=== PATIENT | female | born 1985 | race Caucasian/White ===

== ENCOUNTER 2016-07-11 20:00 | Emergency (ER) | payer BC, MEDICAID ==
[2016-07-11 21:17] VITALS: BP 119/67
--- NOTE | 2016-07-11 21:38 | UC ---
Abdominal Pain Female HPI - HPI Summary HPI Summary: The patient comes in today for: 1. Abdominal pain (epigastric): Onset: One and off for about a month. But, starting at about 1 PM, today, it has gotten worse. Palliative/provocative: Eating makes it worse. "Curling up in a ball helps." TUMS did not help other than "briefly." Quality: Sharp and fullness. Region: Epigastric area. Severity: 310 Time: Constant. Associated symptoms: Fevers: None. Vomiting: "I've had a lot of morning sickness and nausea." She states that she can't tell if her nausea is worse. Hematemsis: She had one episode of this 4 days ago. None since. She had this "small amount" (no clots--just streaks) 4 days ago. Melena: None. Previous disease: She has had an ulcer before--about three years ago. Treatment: Sulcrafate. She was taking "a lot of NSAIDS" for a torn muscle. She states she has not taken any NSAIDs for months. She is about 11 weeks by her report. * - History of Current Complaint Chief Complaint: UCAbdominalPain Stated Complaint: ABDOMINAL PAIN Time Seen by Provider: 07/11/16 21:26 Hx Obtained From: Patient Hx Last Menstrual Period: 04/20/12 ?: Yes Allergies/Adverse Reactions: Allergies Allergy/AdvReac Type Severity Reaction Status Date / Time No Known Allergies Allergy Verified 05/12/12 13:03 Home Medications: Home Medications Doxylamine/Pyridoxine(NF) [Diclegis (NF)] 1 tab PO 07/11/16 [History] Vitamin [Calna] 1 tab PO 07/11/16 [History] PMH/Surg Hx/FS Hx/Imm Hx Previously Healthy: Yes Endocrine History Of: Denies: Diabetes, Thyroid Disease, Hyperthyroidism, Hypothyroidism, Dyslipidemia Cardiovascular History Of: Denies: Cardiac Disorders, Hypertension, Pacemaker/ICD, Myocardial Infarction , Congestive Heart Failure, Atrial Fibrillation, Deep Vein Thrombosis, Bleeding Disorders Respiratory History Of: Reports: Asthma - exercise induced. Denies: COPD, Bronchitis, Pneumonia, Pulmonary Embolism GI/ History Of: Reports: Ulcer - 3 years ago. Rx: Sulcrafate. Denies: Gastroesophageal Reflux, Gastrointestinal Bleed, Gall Bladder Disease , Kidney Stones, Diverticulitis, Renal Disease, Urosepsis Neurological History Of: Denies: TIA, CVA, Dementia, Seizures, Migraine Psychological History Of: Reports: Depression - Was on Lexapro but stopped it about 2 months ago. Denies: Anxiety, Bipolar Disorder, Schizophrenia, Post Traumatic Stress Disorder Cancer History Of: Denies: Lung Cancer, Colorectal Cancer, Breast Cancer, Prostate Cancer, Cervical Cancer Other History Of: Negative For: HIV, Hepatitis B, Hepatitis C, Anticoagulant Therapy - Surgical History Surgical History: Yes Surgery Procedure, Year, and Place: Right shoulder repair 5 years ago tear repair. - Family History Known Family History: Positive: Hypertension, Diabetes Negative: Cardiac Disease - Social History Occupation: Unemployed Alcohol Use: None Substance Use Type: None Smoking Status (MU): Never Smoked Tobacco Review of Systems Constitutional: Negative Skin: Negative Eyes: Negative ENT: Sore Throat Respiratory: Negative Cardiovascular: Negative Gastrointestinal: Abdominal Pain Genitourinary: Negative All Other Systems Reviewed And Are Negative: Yes Physical Exam Triage Information Reviewed: Yes Appearance: Well-Appearing, No Pain Distress, Well-Nourished Vital Signs: Initial Vital Signs Temp 98.4 F 07/11/16 21:13 Pulse 64 07/11/16 21:13 Resp 18 07/11/16 21:13 BP 119/67 07/11/16 21:13 Pulse Ox 100 07/11/16 21:13 Vital Signs Reviewed: Yes Eyes: Positive: Conjunctiva Clear. Negative: Discharge ENT: Positive: Hearing grossly normal. Negative: Pharyngeal erythema, Nasal congestion, Nasal drainage, TM bulging, TM dull, TM red, Tonsillar swelling, Tonsillar exudate Dental: Negative: Gross Decay/Caries @, Dental Fracture @ Neck: Positive: Supple, Nontender, No Lymphadenopathy. Negative: Nuchal Rigidity Respiratory: Positive: Chest non-tender, Lungs clear, No respiratory distress, No accessory muscle use. Negative: Crackles, Wheezing Cardiovascular: Positive: RRR, No Murmur Abdomen Description: Positive: No Organomegaly, Soft. Negative: Nontender - She has tenderness to palpation of the epigastric area, but no rebound or percussion tenderness., Guarding, Hepatomegaly Musculoskeletal: Positive: Strength Intact, ROM Intact Neurological: Positive: Alert, Muscle Tone Normal Psychological: Positive: Age Appropriate Behavior, Consolable Skin: Negative: rashes, breakdown Abd Pain Female Course/Dx - Differential Dx/Diagnosis Differential Diagnosis: Gall Bladder Disease, Pancreatitis, Peptic Ulcer Disease Provider Diagnoses: ABdominal pain, epigastric. Discharge - Discharge Plan Condition: Stable Disposition: AGAINST MEDICAL ADVICE Additional Instructions: Please go directly to the [facility] [place] [facility].
== END 2016-07-11 22:12 | disposition left against medical advice (07) ==
LOC: UCEAST 20:00
DX: O21.0 Mild hyperemesis gravidarum (principal); Z3A.11 11 weeks gestation of pregnancy; R10.13 Epigastric pain
CPT/HCPCS: 99212; G0463

== ENCOUNTER 2016-07-11 22:29 | Emergency (ER) | payer BC, MEDICAID ==
[2016-07-11 22:49] VITALS: BP 104/62
[2016-07-11] MEDS ORDERED: Famotidine TAB* 20 MG PO ONE (23:15)
[2016-07-12 00:02] LABS: Hematocrit 35 % (35-47); Mean Corpuscular HGB Conc 34 g/dl (31-36); Mean Corpuscular Hemoglobin 31 pg (27-31); Mean Corpuscular Volume 89 fL (80-97); Mean Platelet Volume 9 um3 (7.4-10.4); Red Blood Count 3.94 10^6/ul (4.0-5.4); Red Cell Distribution Width 13 % (10.5-15); White Blood Count 7.9 10^3/ul (3.5-10.8)
[2016-07-12 00:15] LABS: Albumin 3.8 g/dL (3.2-5.2); BUN/Creatinine Ratio 19.7 (8-20); Calcium 9.2 mg/dL (8.6-10.3); EGFR African American 149.1 (>60); Globulin 2.6 g/dL (2-4); Potassium 3.5 mmol/L (3.5-5.0); Total Bilirubin 0.3 mg/dL (0.2-1.0); Total Protein 6.4 g/dL (6.4-8.9)
[2016-07-12 00:53] LABS: Urine Bilirubin Negative (Negative); Urine Glucose Negative (Negative); Urine Nitrite Negative (Negative)
--- NOTE | 2016-07-12 01:44 | ED ---
Juan Austin Karl, scribed for Prisca Mauriciouel on 07/11/16 at 2314 . Abdominal Pain/Female - HPI Summary HPI Summary: 30 y/o F presents w/ c/o acute abd pain that is currently at a 3/10 but has been around for 1 month. Pt stated that she took Tums at 17:30 and they have not helped much. Pt is 11 weeks and stated she was diagnosed with an ulcer 3 years ago. Pt denied CP and SOB. - History of Current Complaint Chief Complaint: EDAbdPain Stated Complaint: TRANSFER- 11 WKS PREG-ABD PAIN Time Seen by Provider: 07/11/16 22:38 Hx Obtained From: Patient Hx Last Menstrual Period: 04/20/12 ?: Yes Onset/Duration: Gradual Onset Timing: Constant Severity Initially: Mild Severity Currently: Mild Pain Intensity: 3 - abd pain Pain Scale Used: 0-10 Numeric Location: Epigastric Radiates: No Allergies/Adverse Reactions: Allergies Allergy/AdvReac Type Severity Reaction Status Date / Time No Known Allergies Allergy Verified 05/12/12 13:03 PMH/Surg Hx/FS Hx/Imm Hx Previously Healthy: Yes Endocrine/Hematology History: Denies: Hx Anticoagulant Therapy, Hx Diabetes, Hx Thyroid Disease Cardiovascular History: Denies: Hx Congestive Heart Failure, Hx Deep Vein Thrombosis, Hx Hypertension , Hx Myocardial Infarction, Hx Pacemaker/ICD Respiratory History: Reports: Hx Asthma - exercise induced. Denies: Hx Chronic Obstructive Pulmonary Disease (COPD), Hx Lung Cancer, Hx Pneumonia, Hx Pulmonary Embolism GI History: Reports: Hx Ulcer - 3 years ago. Rx: Sulcrafate. Denies: Hx Gall Bladder Disease, Hx Gastrointestinal Bleed, Hx Urosepsis History: Denies: Hx Kidney Stones, Hx Renal Disease Neurological History: Denies: Hx Dementia, Hx Migraine, Hx Seizures, Hx Transient Ischemic Attacks (TIA) Psychiatric History: Reports: Hx Depression - Was on Lexapro but stopped it about 2 months ago. Denies: Hx Anxiety, Hx Schizophrenia, Hx Bipolar Disorder - Surgical History Surgery Procedure, Year, and Place: Right shoulder repair 5 years ago tear repair. Infectious Disease History: No Infectious Disease History: Denies: Hx Hepatitis, Hx Human Immunodeficiency Virus (HIV), Traveled Outside the [place] in Last 30 Days - Family History Known Family History: Positive: Hypertension, Diabetes Negative: Cardiac Disease - Social History Alcohol Use: None Substance Use Type: Reports: None Smoking Status (MU): Never Smoked Tobacco Review of Systems Constitutional: Negative Eyes: Negative ENT: Negative Negative: Chest Pain Negative: Shortness Of Breath Positive: Abdominal Pain Genitourinary: Negative Musculoskeletal: Negative Skin: Negative Neurological: Negative Psychological: Normal All Other Systems Reviewed And Are Negative: Yes Physical Exam Triage Information Reviewed: Yes Vital Signs On Initial Exam: Initial Vitals Temp Pulse Resp BP Pulse Ox 98.6 F 63 14 104/62 100 07/11/16 22:42 07/11/16 22:42 07/11/16 22:42 07/11/16 22:42 07/11/16 22:42 Vital Signs Reviewed: Yes Appearance: Positive: Well-Appearing, No Pain Distress Skin: Positive: Warm, Skin Color Reflects Adequate Perfusion, Dry Head/Face: Positive: Normal Head/Face Inspection Eyes: Positive: EOMI, ANITA ENT: Positive: Normal ENT inspection Neck: Positive: Supple, Nontender Respiratory/Lung Sounds: Positive: Clear to Auscultation, Breath Sounds Present Cardiovascular: Positive: RRR, Pulses are Symmetrical in both Upper and Lower Extremities Abdomen Description: Positive: Other: - Mild tenderness in epigastric area Bowel Sounds: Positive: Present Musculoskeletal: Positive: Normal, Strength/ROM Intact Neurological: Positive: Normal, Sensory/Motor Intact, Alert, Oriented to Person Place, Time Psychiatric: Positive: Affect/Mood Appropriate Diagnostics - Vital Signs Vital Signs Temp Pulse Resp BP Pulse Ox 07/11/16 22:42 98.6 F 63 14 104/62 100 - Laboratory Lab Results: Lab Results 07/11/16 07/11/16 07/11/16 Range/Units 23:52 23:52 23:52 WBC 7.9 (3.5-10.8) 10^3/ul RBC 3.94 L (4.0-5.4) 10^6/ul Hgb 12.0 (12.0-16.0) g/dl Hct 35 (35-47) % MCV 89 (80-97) fL MCH 31 (27-31) pg MCHC 34 (31-36) g/dl RDW 13 (10.5-15) % Plt Count 157 (150-450) 10^3/ul MPV 9 (7.4-10.4) um3 Neut % (Auto) 66.4 (38-83) % Lymph % (Auto) 23.7 L (25-47) % Person % (Auto) 7.8 (1-9) % Eos % (Auto) 1.3 (0-6) % Baso % (Auto) 0.8 (0-2) % Absolute Neuts (auto) 5.3 (1.5-7.7) 10^3/ul Absolute Lymphs (auto) 1.9 (1.0-4.8) 10^3/ul Absolute Monos (auto) 0.6 (0-0.8) 10^3/ul Absolute Eos (auto) 0.1 (0-0.6) 10^3/ul Absolute Basos (auto) 0.1 (0-0.2) 10^3/ul Absolute Nucleated RBC 0 10^3/ul Nucleated RBC % 0 Sodium 133 (133-145) mmol/L Potassium 3.5 (3.5-5.0) mmol/L Chloride 103 (101-111) mmol/L Carbon Dioxide 21 L (22-32) mmol/L Anion Gap 9 (2-11) mmol/L BUN 12 (6-24) mg/dL Creatinine 0.61 (0.51-0.95) mg/dL Est GFR ( Amer) 149.1 (>60) Est GFR (Non-Af Amer) 116.0 (>60) BUN/Creatinine Ratio 19.7 (8-20) Glucose 79 (70-100) mg/dL Calcium 9.2 (8.6-10.3) mg/dL Total Bilirubin 0.30 (0.2-1.0) mg/dL AST 17 (13-39) U/L ALT 8 (7-52) U/L Alkaline Phosphatase 30 L (34-104) U/L Total Protein 6.4 (6.4-8.9) g/dL Albumin 3.8 (3.2-5.2) g/dL Globulin 2.6 (2-4) g/dL Albumin/Globulin Ratio 1.5 (1-3) Lipase 60 (11.0-82.0) U/L Beta HCG, Quant 338080.00 mIU/mL Urine Color Urine Appearance Urine pH (5-9) Ur Specific Mcintire (1.010-1.030) Urine Protein (Negative) Urine Ketones (Negative) Urine Blood (Negative) Urine Nitrate (Negative) Urine Bilirubin (Negative) Urine Urobilinogen (Negative) Ur Leukocyte Esterase (Negative) Urine Glucose (Negative) Blood Type O Positive Antibody Screen Negative 07/12/16 Range/Units 00:41 WBC (3.5-10.8) 10^3/ul RBC (4.0-5.4) 10^6/ul Hgb (12.0-16.0) g/dl Hct (35-47) % MCV (80-97) fL MCH (27-31) pg MCHC (31-36) g/dl RDW (10.5-15) % Plt Count (150-450) 10^3/ul MPV (7.4-10.4) um3 Neut % (Auto) (38-83) % Lymph % (Auto) (25-47) % Person % (Auto) (1-9) % Eos % (Auto) (0-6) % Baso % (Auto) (0-2) % Absolute Neuts (auto) (1.5-7.7) 10^3/ul Absolute Lymphs (auto) (1.0-4.8) 10^3/ul Absolute Monos (auto) (0-0.8) 10^3/ul Absolute Eos (auto) (0-0.6) 10^3/ul Absolute Basos (auto) (0-0.2) 10^3/ul Absolute Nucleated RBC 10^3/ul Nucleated RBC % Sodium (133-145) mmol/L Potassium (3.5-5.0) mmol/L Chloride (101-111) mmol/L Carbon Dioxide (22-32) mmol/L Anion Gap (2-11) mmol/L BUN (6-24) mg/dL Creatinine (0.51-0.95) mg/dL Est GFR ( Amer) (>60) Est GFR (Non-Af Amer) (>60) BUN/Creatinine Ratio (8-20) Glucose (70-100) mg/dL Calcium (8.6-10.3) mg/dL Total Bilirubin (0.2-1.0) mg/dL AST (13-39) U/L ALT (7-52) U/L Alkaline Phosphatase (34-104) U/L Total Protein (6.4-8.9) g/dL Albumin (3.2-5.2) g/dL Globulin (2-4) g/dL Albumin/Globulin Ratio (1-3) Lipase (11.0-82.0) U/L Beta HCG, Quant mIU/mL Urine Color Yellow Urine Appearance Clear Urine pH 6.0 (5-9) Ur Specific Mc[place] 1.013 (1.010-1.030) Urine Protein Negative (Negative) Urine Ketones 1+ H (Negative) Urine Blood Negative (Negative) Urine Nitrate Negative (Negative) Urine Bilirubin Negative (Negative) Urine Urobilinogen Negative (Negative) Ur Leukocyte Esterase Negative (Negative) Urine Glucose Negative (Negative) Blood Type Antibody Screen Result Diagrams: 07/11/16 23:52 07/11/16 23:52 Lab Statement: Any lab studies that have been ordered have been reviewed, and results considered in the medical decision making process. - Additional Comments Diagnostic Additional Comments: US Gallbladder: Radiologist IMPRESSION: NEGATIVE EXAM Abdominal Pain Fem Course/Dx - Diagnoses Provider Diagnoses: Abdominal pain during Discharge - Discharge Plan Condition: Stable Disposition: HOME Patient Education Materials: Abdominal Pain in (ED) Referrals: Non Staff,Doctor [Primary Care Provider] - Additional Instructions: Please follow up with your OBGYN within the next 3 days. The documentation as recorded by the Juan justice Karl accurately reflects the service I personally performed and the decisions made by , Agustin Mauricio.
--- NOTE | 2016-07-12 06:22 | RAD ---
INDICATION: Cholecystitis COMPARISON: None TECHNIQUE: Longitudinal and transverse scans of the right upper quadrant were obtained. Doppler interrogation of the hepatic and portal venous system was performed. FINDINGS: Liver: The liver is normal in size and echogenicity. There are no focal masses. The liver measures 15.3 cm in cephalocaudal dimension. Vessels: There is normal hepatic and portal venous flow. Bile ducts: There is no evidence of intrahepatic or extrahepatic ductal dilatation. The common duct measures 8.3 cm. Gallbladder: The sonographic appearance of the gallbladder is normal. There is no evidence of cholelithiasis, thickening of the gallbladder wall, or pericholecystic fluid. Pancreas: The visualized pancreas appears normal Right kidney: The right kidney is normal in size and echogenicity. There are no masses or calculi. There is no evidence of hydronephrosis. The right kidney measures 9.7 x 5.2 x 6.0 cm. IVC and aorta: The aorta and superior vena cava appear normal. Fluid: There is no ascites. Other: None. IMPRESSION: NORMAL STUDY.
== END 2016-07-12 01:21 | disposition home or self-care (01) ==
LOC: ED 22:29
DX: O26.891 Other specified pregnancy related conditions, first trimester (principal); R10.13 Epigastric pain; Z3A.11 11 weeks gestation of pregnancy; Z87.11 Personal history of peptic ulcer disease
CPT/HCPCS: 36415; 76705; 80053; 81003; 83690; 84702; 85025; 86850; 86900; 86901; 99282; A9270-GY

== ENCOUNTER 2017-02-09 07:50 | Inpatient (IN) | payer OTHER ==
[2017-02-09] MEDS ORDERED: Dinoprostone* 10 MG VAG.SUPP VAGINAL ONE (08:37)
--- NOTE | 2017-02-09 08:41 | PN ---
L&D Outpatient: Visit - Reproductive Information Estimated Due Date: 02/01/17 Gestational Age: 41 Weeks and 1 Days : 1 Para: 0 - Reason for Visit Visit Reason: post term for cervical ripening - Antepartal Records Antepartal Record: Reviewed, Complicated by: - positive GBS culture - Patient History Patient History Significant: No L&D Outpatient: ROS - Review of Systems CV Complaint: No Respiratory: Shortness of Breath: No Gastrointestinal: No Nausea/Vomiting Genitourinary: No Dysuria Musculoskeletal: No Complaint Movement: Normal L&D Outpatient: Exam - Cervical Exam Cervical Exam: [id number] : thick, closed, 0 station - Abdominal Exam Abdomen Exam: Non-Tender - Membranes Membrane Status: Intact - Ultrasound/Biophysical Profile Ultrasound Status: Not Done L&D Outpatient: EFM - External Monitor Findings Baseline Heart Rate: 135 - mild contractions every 4-6minutes External Monitor Findings: Accelerations Present, Variability Moderate External Monitor Findings Comment: category 1 L&D Outpatient: Asses/Plan Assessment: unripe cervix options reviewed with pt/. Will start with Cervidil
[2017-02-09 23:38] LABS: Hematocrit 39 % (35-47); Hemoglobin 13.8 g/dl (12.0-16.0); Mean Corpuscular HGB Conc 36 g/dl (31-36); Mean Corpuscular Hemoglobin 33 pg (27-31); Mean Corpuscular Volume 91 fL (80-97); Mean Platelet Volume 10 um3 (7.4-10.4); Red Blood Count 4.26 10^6/ul (4.0-5.4); Red Cell Distribution Width 13 % (10.5-15); White Blood Count 14.2 10^3/ul (3.5-10.8)
[2017-02-10] MEDS ORDERED: Promethazine INJ(RESTRICTED)* 25 MG/ML 1 ML VIAL IV ONE (00:25)
[2017-02-10] MEDS ORDERED: Nalbuphine* 20 MG/ML 1 ML VIAL IV PRN (00:25)
[2017-02-10] MEDS ORDERED: Oxytocin in LR* 20 UNITS/1,000 ML BAG IVPB ONE (06:50)
[2017-02-10] MEDS ORDERED: Oxytocin in LR* 20 UNITS/1,000 ML BAG IVPB SCH (07:00)
[2017-02-10] MEDS ORDERED: OBEPIDURAL* 250 ML ONE (11:05)
[2017-02-10] MEDS ORDERED: Phenylephrine IV* 40 MCG/ML 10 ML SYRINGE IV PUSH PRN ×2 (11:47)
[2017-02-10] MEDS ORDERED: EPHEDrine (Pressors)* 50 MG/ML VIAL IV PUSH PRN ×2 (11:47)
[2017-02-10] MEDS ORDERED: Famotidine TAB* 20 MG PO PRN (11:47)
[2017-02-10] MEDS ORDERED: Sodium Citrate/Citric Acid* 15 ML UDC PO PRN (11:47)
[2017-02-10] MEDS ORDERED: OBEPIDURAL* 250 ML EPIDURAL SCH (12:00)
[2017-02-11] MEDS ORDERED: Acetaminophen TAB* 325 MG PO PRN (02:29)
[2017-02-11] MEDS ORDERED: Witch Hazel PAD* JAR TOPICAL PRN (02:29)
[2017-02-11] MEDS ORDERED: Dibucaine 1% 28.35 GM TUBE PR PRN (02:29)
[2017-02-11] MEDS ORDERED: Oxytocin in LR* 20 UNITS/1,000 ML BAG IVPB SCH (03:00)
[2017-02-11] MEDS: Ibuprofen TAB* 600 MG PO PRN ×3 (03:16→19:39)
[2017-02-11] MEDS: Docusate CAP* 100 MG PO SCH ×4 (09:17→19:39)
[2017-02-12] MEDS: Ibuprofen TAB* 600 MG PO PRN ×4 (03:07→23:10)
[2017-02-12 07:07] LABS: Hematocrit 35 % (35-47); Hemoglobin 12.1 g/dl (12.0-16.0); Mean Corpuscular HGB Conc 35 g/dl (31-36); Mean Corpuscular Hemoglobin 32 pg (27-31); Mean Corpuscular Volume 92 fL (80-97); Mean Platelet Volume 9 um3 (7.4-10.4); Red Blood Count 3.75 10^6/ul (4.0-5.4); Red Cell Distribution Width 14 % (10.5-15); White Blood Count 13.8 10^3/ul (3.5-10.8)
[2017-02-12] MEDS: Docusate CAP* 100 MG PO SCH ×3 (07:55→20:20)
[2017-02-12] MEDS ORDERED: Ferrous Gluconate TAB* 324 MG TAB PO SCH (09:00)
[2017-02-12] MEDS ORDERED: Citalopram TAB* 20 MG PO SCH (18:00)
[2017-02-12] MEDS ORDERED: CMCS: Escitalopram (NF) 10 MG TAB PO SCH (18:31)
[2017-02-12 19:40] VITALS: BP 115/76
[2017-02-13] MEDS: Ibuprofen TAB* 600 MG PO PRN (06:32)
[2017-02-13] MEDS: Docusate CAP* 100 MG PO SCH (09:29)
== END 2017-02-13 12:50 | disposition home or self-care (01) | DRG 560 ==
LOC: MCHOBOUT 07:50 → MCHOB 21:25
PROVIDERS: ADMIT Midwife; ATTEND Midwife
PROC: 10E0XZZ Delivery of Products of Conception, External Approach (ICD-10-PCS; principal; 2017-02-11)
PROC: 3E033VJ Introduction of Other Hormone into Peripheral Vein, Percutaneous Approach (ICD-10-PCS; 2017-02-11)
DX: O48.0 Post-term pregnancy (principal); O99.344 Other mental disorders complicating childbirth; F41.9 Anxiety disorder, unspecified; O99.824 Streptococcus B carrier state complicating childbirth; J45.909 Unspecified asthma, uncomplicated; Z3A.41 41 weeks gestation of pregnancy; Z37.0 Single live birth
CPT/HCPCS: 36415; 59200; 85025; 86850; 86900; 86901; A9270-GY; J2300; J2540; J2550